=== PATIENT | male | born 1930 | race Caucasian/White ===

== ENCOUNTER → 2020-07-11 | Outpatient (CLI) | payer OTHER, MEDICARE ==
[~2020-07-11] MED LIST: ALEVE220 MG PO; HYDROCHLOROTHIA25 M1; HYDROCHLOROTHIA25 M2 PO; K-DUR 20 MEQ T20 MEQ PO; LOPRESSOR50 PO; NASAL DECONGESTA5 MG; NORCO 5-325 TA1 EACH PO; NORVASC 5 MG TAB5 MG PO; NORVASC10 MG PO
== END ==
LOC: RAD 09:39
PROVIDERS: ATTEND Internal Medicine Gastroenterology
DX: S70.01XA Contusion of right hip, initial encounter (principal); M47.816 Spondylosis without myelopathy or radiculopathy, lumbar region; M25.78 Osteophyte, vertebrae; X58.XXXA Exposure to other specified factors, initial encounter; Y93.89 Activity, other specified; Y92.89 Other specified places as the place of occurrence of the external cause; Y99.8 Other external cause status